=== PATIENT | male | born 1940 | race Caucasian/White ===

== ENCOUNTER → 2017-12-25 | Outpatient (CLI) | payer MEDICARE ==
[2017-12-25 12:05] LABS: HCT 42.6 % (39.0-53.0); HGB 13.8 gm/dL (13.0-17.5); MCH 32.8 pg (25.0-35.0); MCHC 32.4 g/dL (31.0-37.0); MCV 101.1 fL (80.0-100.0); Mean Platelet Volume 6.7; Platelet Count 285 k/uL (150-450); RBC 4.21 m/uL (4.30-5.90); RDW 12.7 % (11.5-15.5); WBC 6.7 k/uL (3.8-10.6)
[2017-12-25 12:49] LABS: Blood Urea Nitrogen 22 mg/dL (9-20); C Reactive Protein 7.1 mg/L (<10.0)
[2017-12-25 14:18] LABS: Erythrocyte Sedimentation Rate 13 mm/hr (0-15)
--- NOTE | 2017-12-25 14:40 | CT ---
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 TECHNIQUE: CT scan of the head is performed with IV contrast.,CT scan of the head is performed withou t and with without and with IV Contrast, patient injected with 100 ml mL of Isovue 300. FINDINGS: Noncontrast images show no acute intracranial hemorrhage or midline shift. The ventricles and sulci are within normal limits in size. Postcontrast images show no suspicious enhancing intrapa renchymal mass. Calvarium is intact. Visualized paranasal sinuses and mastoid air cells are well aera thais. No vasogenic edema is appreciated. No suspicious extra axial fluid collection is seen. The optic nerves appear symmetric without significant undulation or bowing. There is no flattening of the posterior globes. Surgical absence of the lenses is noted bilaterally. There is enlargement of b oth inferior rectus musculature, left greater than right such as on coronal postcontrast image 18 and axial postcontrast image 12 and 13 of the. These also enhance more avidly than the other extraocular musculature. Globes maintain a normal rounded morphology. No preseptal or post septal soft tissue sw elling. Incidental note of posterior nasal septal deviation to the left with a 3 mm leftward nasal septal spu r. No evidence of large vessel vascular occlusion. The posterior communicating arteries are not well seen on CTA, likely diminutive nature. Ophthalmic arteries are also suboptimally visualized but appea r grossly patent. IMPRESSION: 1. No abnormal postcontrast enhancement. No evidence of enhancing intracranial mass. No large vessel vascular occlusion is seen. Ophthalmic arteries are somewhat limited seen but appear grossly patent. No flattening of the globes to suggest CT sequela of intracranial hypertension. 2. Abnormal enhancement and enlargement of the inferior rectus muscle bilaterally. This can be seen i n thyroid ophthalmopathy although no exophthalmos is noted. Correlate with serum laboratory values. A lternatively this could relate to infectious or inflammatory change. 3. No intraconal or extraconal mass. No preseptal or post septal inflammatory change. 4. No abnormal enhancement of the optic nerves or CT evidence of optic nerve gross detachment.
== END | disposition home or self-care (01) ==
LOC: RADCTMAIN 11:29
PROVIDERS: ATTEND Ophthalmology
DX: H57.89 Other specified disorders of eye and adnexa (principal)
CPT/HCPCS: 85652; 82565; 84520; 85027; 86140; 70470; 70482; 36415; Q9967

== ENCOUNTER 2017-12-26 17:09 | Inpatient (IN) | payer MEDICARE ==
[2017-12-26] MEDS ORDERED: methylPREDNISolone SOD SUCCI 125 MG/2 ML VIAL IV STA (17:47)
--- NOTE | 2017-12-26 17:55 | ED ---
Eye Problem HPI - General Chief complaint: Eye Problems Stated complaint: lt eye vision loss Time Seen by Provider: 12/26/17 17:18 Source: patient, family Mode of arrival: ambulatory Limitations: no limitations - History of Present Illness Initial comments: 77-year-old male patient presents to the emergency department today for evaluation of acute vision loss to the left eye. Patient states that for the last 4 days he has been having visual changes that started as a crespo cloud in his upper visual field in the left eye. Patient states that today when he woke he had an acute change in vision to the left eye. States it is completely crespo with bright flashing lights. States he is able to see, but states there is a crespo cloud over everything. Patient states he has increased pressure and achiness surrounding the left eye. States he is having pain to his bilateral temples and has been having jaw pain for the last couple of weeks. He denies any current headache, disturbance of vision in the right eye, numbness, or tingling to his extremities. He denies any dizziness or unilateral weakness. He denies any fever or chills. He does have history of cataract removal bilaterally. Patient denies any recent rash, shortness breath, chest pain, abdominal pain, nausea, vomiting, diarrhea, constipation, back pain, hematuria, dysuria, urinary urgency, urinary frequency, or any other complaints. - Related Data Home Medications Medication Instructions Recorded Confirmed Atorvastatin Calcium 10 mg PO HS 02/19/16 12/26/17 Brimonidine Tartrate [Alphagan P 1 drops LEFT EYE TID 12/26/17 12/26/17 0.2% Ophth Soln] Omeprazole Magnesium [PriLOSEC OTC] 20 mg PO HS 12/26/17 12/26/17 Allergies Allergy/AdvReac Type Severity Reaction Status Date / Time No Known Allergies Allergy Verified 12/26/17 17:36 Review of Systems ROS Statement: Those systems with pertinent positive or pertinent negative responses have been documented in the HPI. ROS Other: All systems not noted in ROS Statement are negative. Past Medical History Past Medical History: GERD/Reflux, Hyperlipidemia Additional Past Medical History / Comment(s): skin cancer History of Any Multi-Drug Resistant Organisms: None Reported Past Surgical History: Cholecystectomy, Tonsillectomy Additional Past Surgical History / Comment(s): Colonoscopy, cataract surgery ( yeison). Past Anesthesia/Blood Transfusion Reactions: No Reported Reaction Past Psychological History: No Psychological Hx Reported Smoking Status: Never smoker Past Alcohol Use History: None Reported Past Drug Use History: None Reported - Past Family History Mother Family Medical History: Cancer Additional Family Medical History / Comment(s): LYMPHOMA General Exam Limitations: no limitations General appearance: alert, in no apparent distress, other (This is a well- developed, well-nourished elderly male patient in no acute distress. Vital signs upon presentation are temperature 98.3F, pulse 62, respirations 18, blood pressure 160/91, pulse ox 98% on room air.) Eye exam: Present: normal appearance, PERRL, EOMI, other (Patient has no temporal tenderness or artery induration. Pressure to bilateral eyes is 8 mmHg. Patient does have some pupillary reaction bilaterally, history of cataract removal. Patient has full range of motion, EOMI intact, no pain with eye movement.). Absent: scleral icterus, conjunctival injection, periorbital swelling ENT exam: Present: normal exam, normal oropharynx, mucous membranes moist Respiratory exam: Present: normal lung sounds bilaterally. Absent: respiratory distress, wheezes, rales, rhonchi, stridor Cardiovascular Exam: Present: regular rate, normal rhythm, normal heart sounds. Absent: systolic murmur, diastolic murmur, rubs, gallop, clicks GI/Abdominal exam: Present: soft, normal bowel sounds. Absent: distended, tenderness, guarding, rebound, rigid Neurological exam: Present: alert, oriented X3, CN II-XII intact, other ( Strength in all 4 extremities is 5/5.) Psychiatric exam: Present: normal affect, normal mood Skin exam: Present: warm, dry, intact, normal color. Absent: rash Course Vital Signs 12/26/17 12/26/17 12/26/17 17:10 19:15 20:20 Temperature 98.3 F 97.1 F L Pulse Rate 62 58 L 64 Pulse Rate [ Pulse Oximetery ] Respiratory 18 16 16 Rate Blood Pressure 160/91 161/79 156/81 Blood Pressure [Right Arm] O2 Sat by Pulse 98 98 95 Oximetry 12/26/17 20:29 Temperature 97.4 F L Pulse Rate Pulse Rate [ 66 Pulse Oximetery ] Respiratory 18 Rate Blood Pressure Blood Pressure 148/85 [Right Arm] O2 Sat by Pulse 95 Oximetry Medical Decision Making - Medical Decision Making 77-year-old male patient presented to the emergency department today for evaluation of left eye pain and visual change. Physical examination was otherwise unremarkable, patient is neurologically intact. Pressure to the left eye was [address] Becker was in to evaluate patient, he reports diagnosis of temporal arteritis though he has signed CRP are both negative. CT brain is negative. We'll start patient on high-dose steroids. We also admit to rule out stroke, we will obtain echocardiogram and bilateral carotid duplex. Did discuss findings and results with the patient. He is in agreement with this plan. - Lab Data Result diagrams: 12/26/17 18:08 10 18:08 Lab Results 12/26/17 12/26/17 Range/Units 18:08 18:08 WBC 6.6 (3.8-10.6) k/uL RBC 4.42 (4.30-5.90) m/uL Hgb 14.5 (13.0-17.5) gm/dL Hct 44.5 (39.0-53.0) % MCV 100.5 H (80.0-100.0) fL MCH 32.9 (25.0-35.0) pg MCHC 32.7 (31.0-37.0) g/dL RDW 12.7 (11.5-15.5) % Plt Count 299 (150-450) k/uL Neutrophils % 64 % Lymphocytes % 24 % Monocytes % 7 % Eosinophils % 3 % Basophils % 0 % Neutrophils # 4.2 (1.3-7.7) k/uL Lymphocytes # 1.5 (1.0-4.8) k/uL Monocytes # 0.5 (0-1.0) k/uL Eosinophils # 0.2 (0-0.7) k/uL Basophils # 0.0 (0-0.2) k/uL ESR 9 (0-15) mm/hr Sodium 141 (137-145) mmol/L Potassium 4.2 (3.5-5.1) mmol/L Chloride 106 (98-107) mmol/L Carbon Dioxide 27 (22-30) mmol/L Anion Gap 8 mmol/L BUN 18 (9-20) mg/dL Creatinine 0.80 (0.66-1.25) mg/dL Est GFR (CKD-EPI)AfAm >90 (>60 ml/min/1.73 sqM) Est GFR (CKD-EPI)NonAf 87 (>60 ml/min/1.73 sqM) Glucose 103 H (74-99) mg/dL Calcium 9.4 (8.4-10.2) mg/dL Total Bilirubin 0.4 (0.2-1.3) mg/dL AST 22 (17-59) U/L ALT 24 (21-72) U/L Alkaline Phosphatase 85 (38-126) U/L C-Reactive Protein 6.1 (<10.0) mg/L Total Protein 6.7 (6.3-8.2) g/dL Albumin 3.8 (3.5-5.0) g/dL - Radiology Data Radiology results: report reviewed, image reviewed Computed tomography scan of the brain was obtained. Report was reviewed in its entirety. Impression by Dr. Teresa shows negative computed tomography scan of the brain. She will atrophy. No change. Disposition Clinical Impression: Visual disturbance, Headache Disposition: [facility] Condition: Serious Decision to Admit Reason: Admit from EC Decision Date: 12/26/17 Decision Time: 19:31 (\)
[2017-12-26 18:22] LABS: Basophils % (A) 0 %; Eosinophils # (A) 0.2 k/uL (0-0.7); Eosinophils % (A) 3 %; HCT 44.5 % (39.0-53.0); HGB 14.5 gm/dL (13.0-17.5); Lymphocytes # (A) 1.5 k/uL (1.0-4.8); Lymphocytes % (A) 24 %; MCH 32.9 pg (25.0-35.0); MCHC 32.7 g/dL (31.0-37.0); MCV 100.5 fL (80.0-100.0); Mean Platelet Volume 6.4; Monocytes # (A) 0.5 k/uL (0-1.0); Monocytes % (A) 7 %; Neutrophils # (A) 4.2 k/uL (1.3-7.7); Neutrophils % (A) 64 %; Platelet Count 299 k/uL (150-450); RBC 4.42 m/uL (4.30-5.90); RDW 12.7 % (11.5-15.5); WBC 6.6 k/uL (3.8-10.6)
[2017-12-26 18:36] LABS: ALT 24 U/L (21-72); AST 22 U/L (17-59); Albumin 3.8 g/dL (3.5-5.0); Alkaline Phosphatase 85 U/L (38-126); Anion Gap 8 mmol/L; Blood Urea Nitrogen 18 mg/dL (9-20); C Reactive Protein 6.1 mg/L (<10.0); Calcium 9.4 mg/dL (8.4-10.2); Carbon Dioxide 27 mmol/L (22-30); Chloride 106 mmol/L (98-107); Glucose 103 mg/dL (74-99); Potassium 4.2 mmol/L (3.5-5.1); Sodium 141 mmol/L (137-145); Total Bilirubin 0.4 mg/dL (0.2-1.3); Total Protein 6.7 g/dL (6.3-8.2)
[2017-12-26] MEDS ORDERED: NALOXONE 0.4 MG/ML 1 ML VIAL IV PRN (19:01)
--- NOTE | 2017-12-26 19:12 | CT ---
EXAMINATION TYPE: CT brain wo con DATE OF EXAM: 12/26/2017 COMPARISON: Yesterday HISTORY: Left eye vision loss. CT DLP: 1078.5 mGycm Automated exposure control for dose reduction was used. FINDINGS: There is some cerebral cortical atrophy. There is no mass effect nor midline shift. There is no sign of intracranial hemorrhage. The calvarium is intact. IMPRESSION: NEGATIVE CT SCAN OF THE BRAIN. CEREBRAL ATROPHY. NO CHANGE.
[2017-12-26 19:43] LABS: Erythrocyte Sedimentation Rate 9 mm/hr (0-15)
--- NOTE | 2017-12-26 20:18 | CONS ---
CONSULTATION Emergency room consultation of the patient. CHIEF COMPLAINT: The patient is complaining of loss of vision in the left eye of 1 day duration, which started like a curtain extending to his whole vision. Was seen by Dr. Tavares who diagnosed anterior ischemic optic neuritis. The patient is complaining of bitemporal pain in both temples with jaw claudication. Denies any history of diabetes or hypertension. Eye examination: Vision right eye 20/40, left eye 20/200. Extraocular motility full. Visual field central scotoma, left eye. Pupils, left mild relative afferent pupillary defect and tension applanation was 19 mmHg for both eyes. Implants in both eyes. Left optic disc shows office shows hemorrhages and ischemia. The pupil was very small, unable to dilate fully. New good indirect to check the peripheral retina in the emergency room. ASSESSMENT: 1. Left ischemic optic neuritis. 2. Possible temporal arteritis. SUGGEST: Neuroophthalmologist/Neurologist to monitor the temporal arteritis needs steroid. Sedimentation rate and C-reactive protein are pending, but still I will treat with steroids at this point because of the bitemporal tenderness and the history of jaw claudication for 2 weeks. Thank you for this consultation. MMODL / IJN: [id number] /
[2017-12-26 21:13] VITALS: BMI 23.5
[2017-12-26] MEDS: ATORVASTATIN 10 MG TAB PO SCH (21:15)
[2017-12-26] MEDS: PANTOPRAZOLE 40 MG TABLET PO SCH (21:15)
[2017-12-26] MEDS: BRIMONIDINE TARTRATE 0.2% DROPS 5 ML BTL LEFT EYE SCH (21:15)
[2017-12-26 21:53] LABS: Glucose,Whole Blood 169 mg/dL (75-99)
[2017-12-26] MEDS: INSULIN ASPART 100 UNIT/ML 1 ML 10 ML VIAL SQ SCH (21:57)
--- NOTE | 2017-12-26 22:21 | US ---
EXAMINATION TYPE: US carotid duplex BILAT DATE OF EXAM: 12/26/2017 COMPARISON: CT Brain CLINICAL HISTORY: left eye vision loss; patient stated has graying of vision; non smoker EXAM MEASUREMENTS: RIGHT: Peak Systolic Velocity (PSV) cm/sec ----- Right CCA: 114.7 ----- Right ICA: 100.2 ----- Right ECA: 117.6 ICA/CCA ratio: 0.9 RIGHT: End Diastole cm/sec ----- Right CCA: 21.7 ----- Right ICA: 15.9 ----- Right ECA: 8.6 LEFT: Peak Systolic Velocity (PSV) cm/sec ----- Left CCA: 81.7 ----- Left ICA: 104.3 ----- Left ECA: 80.8 ICA/CCA ratio: 1.3 LEFT: End Diastole cm/sec ----- Left CCA: 20.4 ----- Left ICA: 30.5 ----- Left ECA: 9.2 VERTEBRALS (direction of flow): Right Vertebral: Antegrade Left Vertebral: Antegrade Rhythm: Normal Mild intimal wall thickening is noted in bilateral carotid systems with some irregular wall changes a t bifurcations, but PSV is wnl bilaterally. IMPRESSION: There is antegrade flow in the vertebral arteries. The images and measurements suggest u p to 25% stenosis in both internal carotid arteries. Criteria for Assigning % of Stenosis / Diameter reduction (Estimation based on the indirect measurements of the internal carotid artery velocities (ICA PSV). 1. Normal (no stenosis)=ICA PSV < 125 cm/s: ratio < 2.0: ICA EDV<40 cm/s. 2. Less than 50% stenosis=ICA PSV < 125 cm/s: ratio < 2.0: ICA EDV<40 cm/s. 3. 50 to 69% stenosis=ICA PSV of 125 to 230 cm/s: ration 2.0 ? 4.0: ICA EDV 40-100 cm/s. 4. Greater than 70% stenosis to near occlusion= ICA PSV > 230 cm/s: ratio > 4.0: ICA EDV > 100 cm/s. 5. Near occlusion= ICA PSV velocities may be low or undetectable: variable ratio and ICA EDV. 6. Total occlusion=unable to detect flow.
[2017-12-27] MEDS: methylPREDNISolone SOD SUCCI 250 MG in SODIUM CHLORIDE 0.9% 100 ML IVPB SCH ×4 (00:35→18:21)
[2017-12-27 05:07] LABS: Hemoglobin A1C 5.4 % (4.0-6.0)
[2017-12-27 05:54] LABS: Glucose,Whole Blood 141 mg/dL (75-99)
[2017-12-27] MEDS: INSULIN ASPART 100 UNIT/ML 1 ML 10 ML VIAL SQ SCH ×4 (06:24→20:06)
--- NOTE | 2017-12-27 08:12 | P.HPIM ---
History of Present Illness H&P Date: 12/27/17 Chief Complaint: Loss of vision This is a 77-year-old male one of Dr. Allen with a previous medical history significant for hyperlipidemia, history of gastroesophageal reflux disease, was in his usual state of health about 3 days ago when he developed to have a horizontal curtain coming in front of his left eye and he had lost about 25% of his vision he ended up going to see Dr. Tavares and had a funduscopic examination that was suggestive of Ischemic optic neuropathy(ION) and the patient was put on eyedrops brimonidine ended up following up with his primary care physician had a Holter monitor and EKG as well as a battery of laboratory evaluation including sed rate that were negative his sed rate in the office was around 5 and repeat a sed rate here in the hospital was about 9, patient yesterday developed to have a 90% loss of the vision of the left eye and patient could not see through his left eye is much he had contacted our answer service and he was directed to go to the ER for evaluation had a CT of the brain that was negative ultrasound the carotids were negative as well he was seen in the ER by Dr. Becker from ophthalmology and dilated funduscopic examination was done in the ER and patient was advised to be admitted to the hospital and have a full stroke workup and neurology consultation he was started on Solu-Medrol 250 mg IV piggyback every 6 hours for the next 3 days, patient will be seen in consultation by neurology will order MRI of the brain with and without gadolinium. Review of Systems Constitutional: Denies chronic headaches, Denies lethargy, Denies weakness, Denies weight gain, Denies weight loss Eyes: left loss of vision Ears, nose, mouth and throat: Denies epistaxis, Denies neck lump, Denies swelling in throat, Denies sore throat Cardiovascular: Denies claudication, Denies dyspnea on exertion, Denies edema, Denies high blood pressure, Denies paroxysmal nocturnal dyspnea, Denies rapid heart beat, Denies shortness of breath Gastrointestinal: Denies abdominal pain, Denies belching, Denies bloating, Denies early satiety, Denies loss of appetite, Denies melena, Denies nausea, Denies vomiting Genitourinary: Denies discharge, Denies dysuria, Denies polyuria Musculoskeletal: Denies myalgias Musculoskeletal: absent: ankle pain, ankle stiffness, ankle swelling, elbow pain , elbow stiffness, elbow swelling, foot pain, foot stiffness, foot swelling, hand pain, hand stiffness, hand swelling, hip pain, hip stiffness, hip swelling , knee pain, knee stiffness, knee swelling, shoulder pain, shoulder stiffness, shoulder swelling, wrist pain, wrist stiffness, wrist swelling Integumentary: Denies pruritus, Denies rash Neurological: Denies numbness, Denies weakness Psychiatric: Denies anxiety, Denies depression Endocrine: Denies fatigue, Denies weight change Past Medical History Past Medical History: GERD/Reflux, Hyperlipidemia Additional Past Medical History / Comment(s): skin cancer History of Any Multi-Drug Resistant Organisms: None Reported Past Surgical History: Cholecystectomy, Tonsillectomy Additional Past Surgical History / Comment(s): Colonoscopy, cataract surgery ( yeison). Past Anesthesia/Blood Transfusion Reactions: No Reported Reaction Past Psychological History: No Psychological Hx Reported Smoking Status: Never smoker Past Alcohol Use History: None Reported Past Drug Use History: None Reported - Past Family History Mother Family Medical History: Cancer (Mother at age of 85 from lymphoma.) Additional Family Medical History / Comment(s): LYMPHOMA Father Family Medical History: Liver Disease (Father at age of 85 from hepatitis C.) Brother(s) Family Medical History: Coronary Artery Disease (CAD) (Patient has 2 brothers one of them with CABG.) Sister(s) Family Medical History: No Reported History (Patient has 2 sisters no major medical problems.) Daughter(s) Family Medical History: No Reported History (Patient has one daughter no major medical problems) Son(s) Family Medical History: No Reported History (Patient has one son no major medical problems) Medications and Allergies Home Medications Medication Instructions Recorded Confirmed Type Atorvastatin Calcium 10 mg PO HS 02/19/16 12/26/17 History Brimonidine Tartrate [Alphagan P 1 drops LEFT EYE TID 12/26/17 12/26/17 History 0.2% Ophth Soln] Omeprazole Magnesium [PriLOSEC OTC] 20 mg PO HS 12/26/17 12/26/17 History predniSONE 10 mg PO DAILY #30 tab 12/29/17 Rx Allergies Allergy/AdvReac Type Severity Reaction Status Date / Time No Known Allergies Allergy Verified 12/26/17 17:36 Physical Exam Vitals: Vital Signs Temp Pulse Pulse Resp BP BP Pulse Ox 12/27/17 04:00 97.0 F L 64 16 115/59 96 12/27/17 00:00 97.3 F L 65 16 110/63 95 12/26/17 21:00 66 18 12/26/17 20:29 97.4 F L 66 18 148/85 95 12/26/17 20:20 97.1 F L 64 16 156/81 95 12/26/17 19:15 58 L 16 161/79 98 12/26/17 17:10 98.3 F 62 18 160/91 98 Intake and Output 12/26/17 12/27/17 12/27/17 22:59 06:59 14:59 Intake Total 400 Balance 400 Intake: Intake, IV Titration 100 Amount methylPREDNISolone SOD 100 SUCCI 250 mg In Sodium Chloride 0.9% 100 ml @ 100 mls/hr IVPB Q6H FARIBA Rx#:[id number] Oral 300 Other: # Voids 1 Weight 66 kg 66 kg - Constitutional General appearance: no acute distress - EENT Eyes: anicteric sclerae, EOMI, PERRLA, no ptosis, no scleral icterus ENT: hearing grossly normal, NA/AT, no thrush Ears: bilateral: normal - Neck Neck: no lymphadenopathy, normal ROM, no rigidity, no stridor, no thyromegaly Carotids: bilateral: upstroke normal Thyroid: bilateral: normal size - Respiratory Respiratory: bilateral: diminished, negative: dullness, rales, rhonchi, wheezing , prolonged expiration, prolonged inspiration - Cardiovascular Rhythm: regular Heart sounds: normal: S1, S2 Abnormal Heart Sounds: no systolic murmur, no diastolic murmur, no S3 Gallop, no S4 Gallop - Gastrointestinal General gastrointestinal: normal bowel sounds, soft, no splenomegaly, no tenderness, no umbilical hernia, no ventral hernia - Integumentary Integumentary: normal - Neurologic Neurologic: CNII-XII intact - Musculoskeletal Musculoskeletal: gait normal, strength equal bilaterally - Psychiatric Psychiatric: A&O x's 3, appropriate affect, intact judgment & insight Results CBC & Chem 7: 12/29/17 06:17 12/29/17 06:17 Labs: Abnormal Lab Results - Last 24 Hours (Table) 12/26/17 12/26/17 12/26/17 Range/Units 18:08 18:08 21:49 MCV 100.5 H (80.0-100.0) fL Glucose 103 H (74-99) mg/dL POC Glucose (mg/dL) 169 H (75-99) mg/dL 12/27/17 Range/Units 05:52 MCV (80.0-100.0) fL Glucose (74-99) mg/dL POC Glucose (mg/dL) 141 H (75-99) mg/dL Thrombosis Risk Factor Assmnt - DVT/VTE Prophylaxis DVT/VTE Prophylaxis: Pharmacologic Prophylaxis ordered, Mechanical Prophylaxis ordered - Choose All That Apply Any of the Below Risk Factors Present?: Yes Other Risk Factors: Yes Each Risk Factor Represents 3 Points: Age 75 years or older Other congenital or acquired thrombophilia - If yes, enter type in comment: No Thrombosis Risk Factor Assessment Total Risk Factor Score: 3 Thrombosis Risk Factor Assessment Level: Moderate Risk Assessment and Plan Assessment: Assessment and plan: 1. Subacute left eye visual loss thought to be due to Ischemic Optic neuropathy (ION). Continue Solu-Medrol 250 mg IV piggyback every 6 hours for the next 3 days, we will obtain MRI of the brain with and without gadolinium and will obtain neurology consultation, patient already was seen by Opthalmology here in the ER and also by Dr. Tavares, we will monitor the patient very closely, we will follow up with Neuroopthalmology as an outpatient. 2. Hyperlipidemia. Continue patient on Lipitor 20 mg orally once every day. 3. GERD. Continue patient on omeprazole 20 mg orally once every day 4. DVT prophylaxis. Lovenox 40 mg subcutaneously every 24 hours. 5. GI prophylaxis. Currently on PPI. 6. Full code. 7. Admit to inpatient. Estimated length of stay 2 midnights.
[2017-12-27] MEDS: BRIMONIDINE TARTRATE 0.2% DROPS 5 ML BTL LEFT EYE SCH ×3 (08:48→19:59)
--- NOTE | 2017-12-27 09:49 | ECHOF ---
Referral Reason:acute vision changes MEASUREMENTS -------- HEIGHT: 167.6 cm WEIGHT: 65.8 kg BP: 115/59 RVIDd: 3.1 cm (< 3.3) IVSd: 1.0 cm (0.6 - 1.1) LVIDd: 3.6 cm (3.9 - 5.3) LVPWd: 1.0 cm (0.6 - 1.1) IVSs: 1.1 cm LVIDs: 2.0 cm LVPWs: 1.1 cm LAESV Index (A-L): 22.89 ml/m Ao Diam: 3.0 cm (2.0 - 3.7) AV Cusp: 1.3 cm (1.5 - 2.6) LA Diam: 3.1 cm (2.7 - 3.8) MV E Osiel: 0.71 m/s MV DecT: 227 ms MV A Osiel: 0.72 m/s MV E/A Ratio: 0.99 RAP: 5.00 mmHg RVSP: 34.72 mmHg FINDINGS -------- Sinus rhythm. This was a technically adequate study. The left ventricular size is normal. Left ventricular wall thickness is normal. Overall left vent ricular systolic function is normal with, an EF between 55 - 60 %. The right ventricle is normal in size and function. Normal LA size by volume 22+/-6 ml/m2. RA appears enlarged. Hyperdynamic interatrial septum. There is mild aortic valve sclerosis. There is no evidence of aortic regurgitation. There is no e vidence of aortic stenosis. Mild mitral annular calcification present. There is trace to mild mitral regurgitation. No regurgitation noted There is borderline pulmonary hypertension. The right ventricular systolic pressure, as measured by Doppler, is 34.72mmHg. The pulmonic valve was not well visualized. The aortic root size is normal. Normal inferior vena cava with normal inspiratory collapse consistent with estimated right atrial pre ssure of 5 mmHg. There is no pericardial effusion. CONCLUSIONS -------- 1. Sinus rhythm. 2. This was a technically adequate study. 3. The left ventricular size is normal. 4. Left ventricular wall thickness is normal. 5. Overall left ventricular systolic function is normal with, an EF between 55 - 60 %. 6. Normal LA size by volume 22+/-6 ml/m2. 7. RA appears enlarged. 8. Hyperdynamic interatrial septum. 9. There is mild aortic valve sclerosis. 10. Mild mitral annular calcification present. 11. There is trace to mild mitral regurgitation. 12. No regurgitation noted 13. There is borderline pulmonary hypertension. 14. The right ventricular systolic pressure, as measured by Doppler, is 34.72mmHg. 15. The pulmonic valve was not well visualized. 16. The aortic root size is normal. 17. There is no pericardial effusion. PLODDING OPERATOR: Peewee Bernard RDCS
--- NOTE | 2017-12-27 12:30 | MR ---
EXAMINATION TYPE: MR MRA/MRV head wo con DATE OF EXAM: 12/27/2017 COMPARISON: CT scan of the brain dated 12/26/2017 HISTORY: Loss of vision L eye TECHNIQUE: Time of flight images focusing on the [place] were performed without contrast.. 2-D and 3-D postprocessing imaging is performed. FINDINGS: The left vertebral artery is dominant. Neither posterior communicating artery is visualized with certainty. Both anterior cerebral arteries are patent. Both ophthalmic arteries are visualized. There is normal arborization of the middle cerebral artery. There is no sizable aneurysm. MRV of the brain demonstrates a normal sagittal sinus, straight sinus and sigmoid sinuses bilaterally . Superficial veins are patent. No thrombus is identified. IMPRESSION: NORMAL MRA AND MRV OF THE BRAIN.
[2017-12-27 12:49] LABS: Glucose,Whole Blood 133 mg/dL (75-99)
--- NOTE | 2017-12-27 12:54 | MR ---
EXAMINATION TYPE: MR brain wo/w con DATE OF EXAM: 12/27/2017 12:34 PM COMPARISON: CT scan of the brain dated 12/26/2017. HISTORY: Loss of vision TECHNIQUE: Multiplanar, multiecho imaging of the brain was obtained with and without intravenous adm inistration of 6.5 mL intravenous Gadavist. 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 Mi dline structures are otherwise unremarkable. Echoplanar diffusion imaging is normal. There are normal vascular flow voids. The orbits are unremarkable. There is no evidence of a CP angle mass lesion. There is no acute focal lesion, mass effect or midline shift identified. I do not see evidence of int racranial blood. Following intravenous administration of gadolinium, I do not see evidence of abnormal enhancement. IMPRESSION: 1. NO ACUTE INTRACRANIAL ABNORMALITY. 2. CHIARI I MALFORMATION.
[2017-12-27] MEDS: ENOXAPARIN 40 MG/0.4 ML SYRINGE SQ SCH (16:58)
[2017-12-27 17:09] LABS: Glucose,Whole Blood 201 mg/dL (75-99)
[2017-12-27] MEDS: PANTOPRAZOLE 40 MG TABLET PO SCH (19:59)
[2017-12-27] MEDS: ATORVASTATIN 10 MG TAB PO SCH (19:59)
[2017-12-27 20:12] LABS: Glucose,Whole Blood 170 mg/dL (75-99)
[2017-12-28] MEDS: methylPREDNISolone SOD SUCCI 250 MG in SODIUM CHLORIDE 0.9% 100 ML IVPB SCH ×5 (00:39→23:55)
[2017-12-28 04:54] LABS: Basophils % (A) 0 %; Eosinophils % (A) 0 %; HCT 40.6 % (39.0-53.0); HGB 13.1 gm/dL (13.0-17.5); Lymphocytes # (A) 0.6 k/uL (1.0-4.8); Lymphocytes % (A) 4 %; MCH 32.1 pg (25.0-35.0); MCHC 32.2 g/dL (31.0-37.0); MCV 99.7 fL (80.0-100.0); Mean Platelet Volume 6.5; Monocytes # (A) 0.4 k/uL (0-1.0); Monocytes % (A) 2 %; Neutrophils # (A) 14.4 k/uL (1.3-7.7); Neutrophils % (A) 94 %; Platelet Count 292 k/uL (150-450); RBC 4.08 m/uL (4.30-5.90); WBC 15.4 k/uL (3.8-10.6)
[2017-12-28 05:12] LABS: ALT 23 U/L (21-72); AST 13 U/L (17-59); Albumin 3.2 g/dL (3.5-5.0); Alkaline Phosphatase 69 U/L (38-126); Anion Gap 4 mmol/L; Blood Urea Nitrogen 18 mg/dL (9-20); Calcium 9.1 mg/dL (8.4-10.2); Carbon Dioxide 24 mmol/L (22-30); Chloride 110 mmol/L (98-107); Glucose 154 mg/dL (74-99); Potassium 4.3 mmol/L (3.5-5.1); Sodium 138 mmol/L (137-145); Total Bilirubin 0.3 mg/dL (0.2-1.3); Total Protein 5.9 g/dL (6.3-8.2)
[2017-12-28 05:12] LABS: Glucose,Whole Blood 148 mg/dL (75-99)
[2017-12-28] MEDS: INSULIN ASPART 100 UNIT/ML 1 ML 10 ML VIAL SQ SCH ×4 (05:54→20:43)
[2017-12-28] MEDS: ENOXAPARIN 40 MG/0.4 ML SYRINGE SQ SCH (07:57)
[2017-12-28] MEDS: BRIMONIDINE TARTRATE 0.2% DROPS 5 ML BTL LEFT EYE SCH ×3 (07:57→20:14)
--- NOTE | 2017-12-28 09:10 | P.CNNES ---
History of Present Illness Consult date: 12/27/17 Reason for Consult: Patient admitted with optic neuritis of the left eye. History of Present Illness: This neurology consultation was performed on 12/27/2017 on [facility] care floor for patient Aj Alexis in (Room 652-2). This patient is a 77-year-old right-handed white male who was in his usual state of health until recently. About 3 days prior to his admission to the hospital. Was noticing difficulty with vision in his left eye. Initially described it as a curtain coming down over his left eye visual field. This was quite concerning for the patient as he has not had vision changes previously. He was seen by his cnc mechanic Dr. Tavares who performed a funduscopic examination in the office on 12/25/2017. He made a diagnosis suggesting acute ischemic optic neuritis involving his left eye. He was prescribed some eyedrops and advised to follow-up with his primary care physician. Dr. Tavares also requested a computed tomography scan of the brain to be done. CAT scan of the brain was completed on 12/25/2017 which revealed no abnormal postcontrast enhancement. No evidence of enhancing mass lesion. No large vessel occlusion was noted. There was some abnormal enhancement involving the inferior rectus muscle bilaterally. This could be seen in thyroid ophthalmopathy. No abnormal enhancement of the optic nerves was detected. The patient was then referred on to his primary care physician Dr. Allen for further evaluation. A Holter monitor was recommended as well as a EKG. He underwent a laboratory tests to check his sedimentation rate which was 9.0. C-reactive protein was 6.1. Both of these are well within normal limits. Patient was recommended admission to the hospital for acute left eye optic neuritis and was recommended immediate treatment with IV Solu-Medrol 250 mg IVP E back every 6 hours for 3 days. The patient was admitted to [facility] for this treatment plan. While in the emergency room he was seen by Dr. Becker who did recommend starting him on IV Solu-Medrol. MRI/MRA MRV of the brain was ordered and he was admitted to Hospital for further treatment. The patient denies any previous history of TIA or stroke. He states his serum cholesterol has been under good control. He does have a known history of hyperlipidemia and has been taking Lipitor 20 mg daily. We have recommended a complete stroke evaluation for this patient. As noted his sedimentation rate and C-reactive protein were well within normal limits and did not indicate signs of acute inflammatory response. These laboratory tests results are not typically seen with temporal arteritis. The patient was complaining of bilateral temporal headaches which on further questioning actually was more of a pressure sensation especially on his left retro-orbital area. This is most likely related to his optic neuritis. We will continue close monitoring. The patient states that his vision has shown slight improvement since admission to the hospital. As noted he has been recommended 3 days of IV Solu-Medrol therapy which we agree. He underwent MRI of the brain today on 12/27/2017 which revealed no acute intra-cranial abnormality. There was finding suggesting a Chiari I malformation. This finding is more likely incidental finding for the patient as he does not have classical findings of Chiari I malformation. Typical symptoms would include chronic daily suboccipital headache, neck pain, vertigo, tinnitus, and aural fullness. Patient states he is not experiencing any of these symptoms. We have recommended that he follow-up wit the neurosurgery clinic as an outpatient for further evaluation. His MRA and MRV of the brain were normal. We reviewed all of these results today with the patient in detail. His echocardiogram revealed his ejection fraction to be 55 60 percent. His carotid Doppler study was also completed and revealed no evidence of carotid artery stenosis. Measurements indicate 25% stenosis bilaterally. We reviewed all of his test results today with the patient in detail. 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 He will require full 3 days of IV Solu- Medrol therapy. He should follow-up with Dr. Tavares soon after discharge from hospital. The patient is now been admitted and neurology has been consulted for further evaluation and recommendations. We will continue close neurological follow-up for this patient during this admission. Review of Systems Constitutional: Denies chills, Denies fever Eyes: denies blurred vision, denies pain Ears, nose, mouth and throat: Denies headache, Denies sore throat Cardiovascular: Denies chest pain, Denies shortness of breath Respiratory: Denies cough Gastrointestinal: Denies abdominal pain, Denies diarrhea, Denies nausea, Denies vomiting Musculoskeletal: Denies myalgias Integumentary: Denies pruritus, Denies rash Neurological: Reports loss of vision, Denies numbness, Denies weakness Psychiatric: Denies anxiety, Denies depression Endocrine: Denies fatigue, Denies weight change Past Medical History Past Medical History: GERD/Reflux, Hyperlipidemia Additional Past Medical History / Comment(s): skin cancer History of Any Multi-Drug Resistant Organisms: None Reported Past Surgical History: Cholecystectomy, Tonsillectomy Additional Past Surgical History / Comment(s): Colonoscopy, cataract surgery ( [place]). Past Anesthesia/Blood Transfusion Reactions: No Reported Reaction Past Psychological History: No Psychological Hx Reported Smoking Status: Never smoker Past Alcohol Use History: None Reported Past Drug Use History: None Reported - Past Family History Father Family Medical History: Liver Disease (Father at age of 85 from hepatitis C.) Brother(s) Family Medical History: Coronary Artery Disease (CAD) (Patient has 2 brothers one of them with CABG.) Sister(s) Family Medical History: No Reported History (Patient has 2 sisters no major medical problems.) Daughter(s) Family Medical History: No Reported History (Patient has one daughter no major medical problems) Son(s) Family Medical History: No Reported History (Patient has one son no major medical problems) Mother Family Medical History: Cancer (Mother at age of 85 from lymphoma.) Additional Family Medical History / Comment(s): LYMPHOMA Medications and Allergies Home Medications Medication Instructions Recorded Confirmed Type Atorvastatin Calcium 10 mg PO HS 02/19/16 12/26/17 History Brimonidine Tartrate [Alphagan P 1 drops LEFT EYE TID 12/26/17 12/26/17 History 0.2% Ophth Soln] Omeprazole Magnesium [PriLOSEC OTC] 20 mg PO HS 12/26/17 12/26/17 History Allergies Allergy/AdvReac Type Severity Reaction Status Date / Time No Known Allergies Allergy Verified 12/26/17 17:36 Physical Examination - Vital Signs Vital Signs: Vital Signs Temp Pulse Resp BP Pulse Ox 12/28/17 08:33 98.1 F 75 16 114/62 95 12/28/17 03:38 97.9 F 65 16 107/57 100 12/28/17 00:00 98.0 F 72 18 114/69 96 12/27/17 20:00 98.1 F 73 18 114/62 96 12/27/17 16:00 97.7 F 78 16 116/64 95 12/27/17 12:39 97.5 F L 78 16 137/69 95 12/27/17 08:52 97.6 F 75 16 110/55 97 Intake and Output 12/27/17 12/28/17 12/28/17 22:59 06:59 14:59 Intake Total 400 100 Balance 400 100 Intake: Intake, IV Titration 100 100 Amount methylPREDNISolone SOD 100 100 SUCCI 250 mg In Sodium Chloride 0.9% 100 ml @ 100 mls/hr IVPB Q6H [facility] Rx#:[id number] Oral 300 Other: # Voids 1 Weight 65.9 kg - Constitutional General appearance: average body habitus, cooperative - EENT EENT: PERRL, mucous membranes moist - Respiratory Respiratory: lungs clear, normal breath sounds - Cardiovascular Cardiovascular: regular rate, normal S1, normal S2 Extremities: no peripheral edema bilaterally - Gastrointestinal Gastrointestinal: normoactive bowel sounds - Integumentary Integumentary: normal - Neurologic Cranial nerve examination: PERRL, EOMI, VFF, V1/V2/V3 grossly intact, face symmetric, tongue midline, intact gag reflex, intact corneal reflex, normal palatal elevation Speech examination: intact Sensorimotor examination: intact Detailed motor examination: grossly full strength in all extremities Motor examination - right side: 4/5: biceps, triceps, wrist flexion, wrist extension, nurse orthopaedic, hip flexors, knee extensors, dorsiflexion, toe extension (EHL) , plantarflexion Motor examination - left side: 4/5: biceps, triceps, wrist flexion, wrist extension, nurse orthopaedic, hip flexors, knee extensors, dorsiflexion, toe extension (EHL) , plantarflexion Detailed sensory examination: intact Reflex and gait examination: intact Reflexes: 1+: ankle, bicep, knee, tricep - Musculoskeletal Musculoskeletal: no pain - Psychiatric Psychiatric: mood/affect appropriate, cooperative Results - Laboratory Findings CBC and BMP: 12/28/17 04:39 12/28/17 04:39 Abnormal Lab Findings: Abnormal Labs 12/26/17 12/26/17 12/26/17 18:08 18:08 21:49 WBC RBC MCV 100.5 H Neutrophils # Lymphocytes # Chloride Glucose 103 H POC Glucose (mg/dL) 169 H AST Total Protein Albumin 12/27/17 12/27/17 12/27/17 05:52 12:46 16:46 WBC RBC MCV Neutrophils # Lymphocytes # Chloride Glucose POC Glucose (mg/dL) 141 H 133 H 201 H AST Total Protein Albumin 12/27/17 12/28/17 12/28/17 20:01 04:39 04:39 WBC 15.4 H RBC 4.08 L MCV Neutrophils # 14.4 H Lymphocytes # 0.6 L Chloride 110 H Glucose 154 H POC Glucose (mg/dL) 170 H AST 13 L Total Protein 5.9 L Albumin 3.2 L 12/28/17 05:09 WBC RBC MCV Neutrophils # Lymphocytes # Chloride Glucose POC Glucose (mg/dL) 148 H AST Total Protein Albumin Assessment and Plan (1) 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 Current Visit: Yes Status: Acute Code(s): H47.012 - ISCHEMIC OPTIC NEUROPATHY, LEFT EYE SNOMED Code(s): 34951369 (2) Headache, temporal Current Visit: Yes Status: Acute Code(s): R51 - HEADACHE SNOMED Code(s): 84551823 (3) Hyperlipidemia Current Visit: Yes Status: Acute Code(s): E78.5 - HYPERLIPIDEMIA, UNSPECIFIED SNOMED Code(s): 82841009 (4) Visual disturbance Current Visit: Yes Status: Acute Code(s): H53.9 - UNSPECIFIED VISUAL DISTURBANCE SNOMED Code(s): 36524569 Plan: This patient is a 77-year-old right-handed white male who was admitted to [facility] for further evaluation and treatment of acute left thigh anterior ischemic optic neuritis. Patient was followed by his cnc mechanic Dr. Tavares who has seen him on 12/25/2017 as he was having vision loss in his left eye. He was advised to follow-up with his primary care physician and subsequently was admitted to Hospital for further treatment. He is now been admitted to hospital and is being treated with IV Solu-Medrol 250 mg IV piggyback every 6 hours for 3 days. His diagnosis is one of acute optic neuritis involving his left eye. He underwent a MRI/MRA and MRV of the brain the results of which are noted above. The patient will require full 3 day course of IV Solu-Medrol therapy for treatment of the optic neuritis. His MRI of the brain failed to reveal any acute changes. Incidental finding of a Chiari I malformation was noted and we would recommend he follow-up in the outpatient neurosurgery clinic for further evaluation. The patient's sedimentation rate and C-reactive proteins are negative and are not indicating evidence for temporal arteritis. On further questioning the patient's fullness and discomfort are mostly retro-orbital on his left side. This is likely secondary to his acute optic neuritis findings. His overall prognosis at this time remains guarded. We will continue to follow him closely during this admission. We will continue to follow his progress closely and we will give further recommendations pending his clinical course. Time with Patient: Greater than 30
[2017-12-28 12:35] LABS: Glucose,Whole Blood 171 mg/dL (75-99)
--- NOTE | 2017-12-28 14:22 | P.PN ---
Subjective Progress Note Date: 12/28/17 This is a 77-year-old male one of Dr. Allen with a previous medical history significant for hyperlipidemia, history of gastroesophageal reflux disease, was in his usual state of health about 3 days ago when he developed to have a horizontal curtain coming in front of his left eye and he had lost about 25% of his vision he ended up going to see Dr. Tavares and had a funduscopic examination that was suggestive of (ION) and the patient was put on eyedrops brimonidine ended up following up with his primary care physician had a Holter monitor and EKG as well as a battery of laboratory evaluation including sed rate that were negative his sed rate in the office was around 5 and repeat a sed rate here in the hospital was about 9, patient yesterday developed to have a 90% loss of the vision of the left eye and patient could not see through his left eye is much he had contacted our answer service and he was directed to go to the ER for evaluation had a CT of the brain that was negative ultrasound the carotids were negative as well he was seen in the ER by Dr. Becker from ophthalmology and dilated funduscopic examination was done in the ER and patient was advised to be admitted to the hospital and have a full stroke workup and neurology consultation he was started on Solu-Medrol 250 mg IV piggyback every 6 hours for the next 3 days, patient will be seen in consultation by neurology will order MRI of the brain with and without gadolinium. 12/28: MRI of the brain with and without gadolinium was done did not show any evidence of acute abnormalities was an incidental finding of Chiari I malformation, patient was seen in consultation by neurology, he was already seen in consultation by ophthalmology, we will continue with Solu-Medrol for the next 3 days. Patient stated that he is feeling worsening of the vision of the left eye, he would be maintained on IV Solu-medrol for the next 24 hours, and he would need to follow-up with Neuro-ophthalmology as an outpatient. Objective - Vital Signs Vital signs: Vital Signs Temp 98.1 F 12/28/17 08:33 Pulse 75 12/28/17 08:33 Resp 16 12/28/17 08:33 BP 114/62 12/28/17 08:33 Pulse Ox 95 12/28/17 08:33 Intake & Output 1012/28/17 12/28/17 18:59 06:59 18:59 Intake Total 420 500 Balance 420 500 Weight 65.9 kg Intake: Intake, IV Titration 200 Amount methylPREDNISolone SOD 200 SUCCI 250 mg In Sodium Chloride 0.9% 100 ml @ 100 mls/hr IVPB Q6H [facility] Rx#:[id number] Oral 420 300 Other: # Voids 1 - Exam - Constitutional General appearance: no acute distress - EENT Eyes: anicteric sclerae, EOMI, PERRLA, no ptosis, no scleral icterus ENT: hearing grossly normal, NA/AT, no thrush Ears: bilateral: normal - Neck Neck: no lymphadenopathy, normal ROM, no rigidity, no stridor, no thyromegaly Carotids: bilateral: upstroke normal Thyroid: bilateral: normal size - Respiratory Respiratory: bilateral: diminished, negative: dullness, rales, rhonchi, wheezing , prolonged expiration, prolonged inspiration - Cardiovascular Rhythm: regular Heart sounds: normal: S1, S2 Abnormal Heart Sounds: no systolic murmur, no diastolic murmur, no S3 Gallop, no S4 Gallop - Gastrointestinal General gastrointestinal: normal bowel sounds, soft, no splenomegaly, no tenderness, no umbilical hernia, no ventral hernia - Integumentary Integumentary: normal - Neurologic Neurologic: CNII-XII intact - Musculoskeletal Musculoskeletal: gait normal, strength equal bilaterally - Psychiatric Psychiatric: A&O x's 3, appropriate affect, intact judgment & insight - Labs CBC & Chem 7: 12/29/17 06:17 12/29/17 06:17 Labs: Abnormal Lab Results - Last 24 Hours (Table) 12/27/17 12/27/17 12/27/17 Range/Units 12:46 16:46 20:01 WBC (3.8-10.6) k/uL RBC (4.30-5.90) m/uL Neutrophils # (1.3-7.7) k/uL Lymphocytes # (1.0-4.8) k/uL Chloride (98-107) mmol/L Glucose (74-99) mg/dL POC Glucose (mg/dL) 133 H 201 H 170 H (75-99) mg/dL AST (17-59) U/L Total Protein (6.3-8.2) g/dL Albumin (3.5-5.0) g/dL 12/28/17 12/28/17 12/28/17 Range/Units 04:39 04:39 05:09 WBC 15.4 H (3.8-10.6) k/uL RBC 4.08 L (4.30-5.90) m/uL Neutrophils # 14.4 H (1.3-7.7) k/uL Lymphocytes # 0.6 L (1.0-4.8) k/uL Chloride 110 H (98-107) mmol/L Glucose 154 H (74-99) mg/dL POC Glucose (mg/dL) 148 H (75-99) mg/dL AST 13 L (17-59) U/L Total Protein 5.9 L (6.3-8.2) g/dL Albumin 3.2 L (3.5-5.0) g/dL Assessment and Plan Assessment: Assessment and plan: 1. Subacute left eye visual loss thought to be due to (ION). Continue Solu- Medrol 250 mg IV piggyback every 6 hours for the next 3 days, MRI of the brain with gadolinium failed to show any acute abnormalities except for the Chiari I malformation. 2. Hyperlipidemia. Continue patient on Lipitor 20 mg orally once every day. 3. GERD. Continue patient on omeprazole 20 mg orally once every day 4. DVT prophylaxis. Lovenox 40 mg subcutaneously every 24 hours. 5. GI prophylaxis. Currently on PPI. 6. Home in 24 hours.
[2017-12-28 17:24] LABS: Glucose,Whole Blood 137 mg/dL (75-99)
[2017-12-28] MEDS: ATORVASTATIN 10 MG TAB PO SCH (20:14)
[2017-12-28] MEDS: PANTOPRAZOLE 40 MG TABLET PO SCH (20:14)
[2017-12-28 20:30] LABS: Glucose,Whole Blood 153 mg/dL (75-99)
[2017-12-29 06:03] LABS: Glucose,Whole Blood 140 mg/dL (75-99)
[2017-12-29] MEDS: INSULIN ASPART 100 UNIT/ML 1 ML 10 ML VIAL SQ SCH ×2 (06:20→12:18)
[2017-12-29] MEDS: methylPREDNISolone SOD SUCCI 250 MG in SODIUM CHLORIDE 0.9% 100 ML IVPB SCH ×2 (06:20→12:18)
[2017-12-29 06:44] LABS: Basophils % (A) 0 %; Eosinophils % (A) 0 %; HCT 39.3 % (39.0-53.0); HGB 13.1 gm/dL (13.0-17.5); Lymphocytes # (A) 0.5 k/uL (1.0-4.8); Lymphocytes % (A) 4 %; MCHC 33.4 g/dL (31.0-37.0); MCV 98.9 fL (80.0-100.0); Monocytes # (A) 0.4 k/uL (0-1.0); Monocytes % (A) 3 %; Neutrophils # (A) 13.9 k/uL (1.3-7.7); Neutrophils % (A) 93 %; Platelet Count 275 k/uL (150-450); RBC 3.98 m/uL (4.30-5.90); RDW 13.1 % (11.5-15.5); WBC 14.8 k/uL (3.8-10.6)
[2017-12-29 06:57] LABS: ALT 14 U/L (21-72); AST 14 U/L (17-59); Albumin 2.9 g/dL (3.5-5.0); Alkaline Phosphatase 58 U/L (38-126); Anion Gap 5 mmol/L; Blood Urea Nitrogen 23 mg/dL (9-20); Calcium 8.8 mg/dL (8.4-10.2); Carbon Dioxide 25 mmol/L (22-30); Chloride 110 mmol/L (98-107); Glucose 133 mg/dL (74-99); Potassium 4.4 mmol/L (3.5-5.1); Sodium 140 mmol/L (137-145); Total Bilirubin 0.3 mg/dL (0.2-1.3); Total Protein 5.4 g/dL (6.3-8.2)
[2017-12-29] MEDS: ENOXAPARIN 40 MG/0.4 ML SYRINGE SQ SCH (08:16)
[2017-12-29] MEDS: BRIMONIDINE TARTRATE 0.2% DROPS 5 ML BTL LEFT EYE SCH (08:16)
[2017-12-29 08:59] VITALS: RESP 18
[2017-12-29 11:28] LABS: Glucose,Whole Blood 149 mg/dL (75-99)
[2017-12-29 12:54] VITALS: BP 116/70; PULSE 64; TEMP 97.5
--- NOTE | 2017-12-29 13:50 | P.DS ---
Providers Date of admission: 12/26/17 19:32 Attending physician: Preet Allen Consults: 12/26/17 18:03 Consult Physician Stat Consulting Provider: Rina Becker Consult Reason/Comments: Vision loss Do you want consulting provider notified?: Already Contacted 12/26/17 19:05 Consult Physician Routine Consulting Provider: Tori Ellison Consult Reason/Comments: Acute Visual Change; Concern for stroke; Temporal arteritis Do you want consulting provider notified?: Yes Primary care physician: Preet Allen [facility] Hospital Course: This is a 77-year-old male one of Dr. Allen with a previous medical history significant for hyperlipidemia, history of gastroesophageal reflux disease, was in his usual state of health about 3 days ago when he developed to have a horizontal curtain coming in front of his left eye and he had lost about 25% of his vision he ended up going to see Dr. Tavares and had a funduscopic examination that was suggestive of optic neuritis and the patient was put on eyedrops brimonidine ended up following up with his primary care physician had a Holter monitor and EKG as well as a battery of laboratory evaluation including sed rate that were negative his sed rate in the office was around 5 and repeat a sed rate here in the hospital was about 9, patient yesterday developed to have a 90% loss of the vision of the left eye and patient could not see through his left eye is much he had contacted our answer service and he was directed to go to the ER for evaluation had a CT of the brain that was negative ultrasound the carotids were negative as well he was seen in the ER by Dr. Becker from ophthalmology and dilated funduscopic examination was done in the ER and patient was advised to be admitted to the hospital and have a full stroke workup and neurology consultation he was started on Solu-Medrol 250 mg IV piggyback every 6 hours for the next 3 days, patient will be seen in consultation by neurology will order MRI of the brain with and without gadolinium. 12/28: MRI of the brain with and without gadolinium was done did not show any evidence of acute abnormalities was an incidental finding of Chiari I malformation, patient was seen in consultation by neurology, he was already seen in consultation by ophthalmology, we will continue with Solu-Medrol for the next 3 days. Patient stated that he is feeling worsening of the vision of the left eye, he would be maintained on IV centimeter for the next 24 hours, and he would need to follow-up with ophthalmology as an outpatient. 12/29: Patient evaluated today, at bedside. He has complaints of now only being able to see a slight shadow out of the left eye, he does report pain has decreased with the steroids. Dr. Gonzales spoke with Chaitanya, who recommends the patient be discharged and a follow up with neuro opthalmology. He is scheduled to see Dr. Karlos Velez tomorrow at 1:30. He will finish Solumedrol infusion today and start oral prednisone. Discharge diagnoses 1. Subacute left eye visual loss thought to be due to ischemic optic neuropathy 2. Hyperlipidemia. 3. GERD. The above impression and plan of care have been discussed and directed by signing physician. Rupali Retana nurse practitioner acting as scribe for signing physician. Patient Condition at Discharge: Good Plan - Discharge Summary Discharge Rx Participant: No New Discharge Prescriptions: New predniSONE 10 mg PO DAILY #30 tab Continue Atorvastatin Calcium 10 mg PO HS Brimonidine Tartrate [Alphagan P 0.2% Ophth Soln] 1 drops LEFT EYE TID Omeprazole Magnesium [PriLOSEC OTC] 20 mg PO HS Discharge Medication List Atorvastatin Calcium 10 mg PO HS 02/19/16 [History] Brimonidine Tartrate [Alphagan P 0.2% Ophth Soln] 1 drops LEFT EYE TID 12/26/17 [History] Omeprazole Magnesium [PriLOSEC OTC] 20 mg PO HS 12/26/17 [History] predniSONE 10 mg PO DAILY #30 tab 12/29/17 [Rx] Follow up Appointment(s)/Referral(s): Karlos Velez MD [REFERRING] - 12/30/17 1:30 pm (Friday (tomorrow)) Preet Allen MD [Primary Care Provider] - 01/02/18 11:00 am (Friday)
== END 2017-12-29 14:17 | disposition home or self-care (01) | DRG 123 ==
LOC: EC 17:09 → 6SEL 19:32 → 3SCARD 12-28 08:43 → 6SEL 12-28 08:43 → UNDODISIN 12-29 14:17
PROVIDERS: ADMIT Internal Medicine Geriatric Medicine; ATTEND Internal Medicine Geriatric Medicine
DX: H47.012 Ischemic optic neuropathy, left eye (principal); G93.5 Compression of brain; H46.9 Unspecified optic neuritis; E78.5 Hyperlipidemia, unspecified; H53.412 Scotoma involving central area, left eye; K21.9 Gastro-esophageal reflux disease without esophagitis; R51 Headache; Z79.899 Other long term (current) drug therapy; Z85.828 Personal history of other malignant neoplasm of skin; Z90.49 Acquired absence of other specified parts of digestive tract; Z98.49 Cataract extraction status, unspecified eye; Z96.1 Presence of intraocular lens; Z82.49 Family history of ischemic heart disease and other diseases of the circulatory system; Z80.7 Family history of other malignant neoplasms of lymphoid, hematopoietic and related tissues
CPT/HCPCS: 36415; 70450; 70544; 70553; 80053; 83036; 85025; 85652; 86140; 93306; 93880; 96365; 96376; 99285

== ENCOUNTER → 2018-02-19 | Outpatient (CLI) | payer MEDICARE ==
[2018-02-19 11:08] LABS: HCT 45.2 % (39.0-53.0); HGB 14.8 gm/dL (13.0-17.5); MCH 32.9 pg (25.0-35.0); MCHC 32.8 g/dL (31.0-37.0); MCV 100.3 fL (80.0-100.0); Mean Platelet Volume 6.4; Platelet Count 248 k/uL (150-450); RBC 4.51 m/uL (4.30-5.90); RDW 13.3 % (11.5-15.5); WBC 12.3 k/uL (3.8-10.6)
[2018-02-19 12:56] LABS: Erythrocyte Sedimentation Rate 8 mm/hr (0-15)
== END | disposition home or self-care (01) ==
LOC: LABWHC1 10:02
PROVIDERS: ATTEND Ophthalmology
DX: M31.6 Other giant cell arteritis (principal)
CPT/HCPCS: 36415; 85027; 85652; 86140

== ENCOUNTER → 2018-04-22 | Outpatient (CLI) | payer MEDICARE ==
[2018-04-22 08:24] LABS: Basophils % (A) 0 %; Eosinophils # (A) 0.1 k/uL (0-0.7); Eosinophils % (A) 1 %; HGB 14.3 gm/dL (13.0-17.5); Lymphocytes # (A) 2.6 k/uL (1.0-4.8); Lymphocytes % (A) 29 %; MCH 33.1 pg (25.0-35.0); MCHC 32.5 g/dL (31.0-37.0); Macrocytosis Slight; Mean Platelet Volume 6.1; Monocytes # (A) 0.6 k/uL (0-1.0); Monocytes % (A) 7 %; Neutrophils # (A) 5.5 k/uL (1.3-7.7); Neutrophils % (A) 62 %; Platelet Count 259 k/uL (150-450); RBC 4.31 m/uL (4.30-5.90); RDW 14.1 % (11.5-15.5)
[2018-04-22 15:54] LABS: T4, Free (Free Thyroxine) 1.2 ng/dL (0.80-1.80)
[2018-04-22 16:18] LABS: Albumin/Globulin Ratio 2.5 (1.60-3.17); Anion Gap 7.7 mmol/L (4.00-12.00); Calcium 9.3 mg/dL (8.7-10.3); Carbon Dioxide 30.3 mmol/L (21.6-31.8); Globulin 1.6 g/dL (1.6-3.3); LDL Cholesterol,Calculated 88.4 mg/dL (0.0-131.0); Potassium 4.1 mmol/L (3.5-5.5); Total Bilirubin 0.4 mg/dL (0.3-1.2); Total Protein 5.6 g/dL (6.2-8.2); VLDL Calculation 12.6 mg/dL (5.00-40.00)
== END | disposition home or self-care (01) ==
LOC: LABWHC1 07:51
PROVIDERS: ATTEND Internal Medicine Geriatric Medicine
DX: Z00.00 Encounter for general adult medical examination without abnormal findings (principal); M31.6 Other giant cell arteritis; E78.2 Mixed hyperlipidemia; R73.9 Hyperglycemia, unspecified
CPT/HCPCS: 36415; 80053; 80061; 83036; 84439; 84443; 85025

== ENCOUNTER → 2018-04-30 | Outpatient (CLI) | payer MEDICARE ==
--- NOTE | 2018-04-30 09:08 | CT ---
EXAMINATION TYPE: CT angio chest DATE OF EXAM: 04/30/2018 COMPARISON: NONE HISTORY: Localized chest swelling, mass and lump neck, loss of vision left eye CT DLP: 379.0 mGycm. Automated Exposure Control for Dose Reduction was Utilized. CONTRAST: CTA scan of the thorax is performed with IV Contrast, patient injected with 65 mL of Isovue 370, pulm onary embolism protocol. MIP Images are created on CT scanner and reviewed. FINDINGS: LUNGS: The lungs are grossly clear, there is no concerning parenchymal mass or nodule identified. 3 m m pulmonary nodule of the posterior right lung apex is present on series 7 image 17. This is continuo us with scarring and could relate to apical fibrotic change. Minimal dependent subsegmental atelectas is is seen within both lungs. Pleural parenchymal scarring is present within the lingula. There is no pleural effusion or pneumothorax seen. The tracheobronchial tree is patent. MEDIASTINUM: There is satisfactory enhancement of the ascending aorta. No evidence of thoracic aortic aneurysm or dissection is seen. Ascending thoracic aorta measures 2.8 cm. Moderate coronary artery c alcifications are present. Heart is mildly enlarged. No mediastinal adenopathy. Small hiatal hernia i s present. No pericardial effusion. There is a conventional three-vessel branch pattern of the aortic arch. Descending thoracic aorta is of normal caliber. OTHER: Upper abdomen demonstrates hepatic steatosis, which limits evaluation for hepatic masses, chol ecystectomy, and a left upper pole renal cyst IMPRESSION: 1. No evidence of thoracic aortic aneurysm or dissection. 2. Cardiomegaly and moderate coronary artery calcifications, a marker of coronary artery disease. 3. 3 mm right apical pulmonary nodule for which follow-up CT chest in 12 months is recommended to ens ure stability. 4. Incidentally noted hepatic steatosis and left upper pole simple appearing renal cysts.
--- NOTE | 2018-04-30 10:51 | CT ---
EXAMINATION TYPE: CT angio neck DATE OF EXAM: 04/30/2018 HISTORY: Localized swelling, mass and lump neck, loss of vision left eye since December COMPARISON: MR a/MRV of the head dated 12/27/2017 CT DLP: 232.30 mGycm. Automated Exposure Control for Dose Reduction was Utilized. TECHNIQUE: CTA scan of the neck is performed with IV Contrast, patient injected with 65 mL of Isovue 370, axial images are obtained, coronal and sagittal reformatted images are reviewed. Three-D recons tructed images are created on an independent workstation and reviewed. FINDINGS: Carotid/Vascular Structures: There is conventional three-vessel branch pattern of the aortic arch. Co mmon and arteries, carotid bulbs, and cervical portions of the internal carotid arteries are patent w ithout hemodynamically significant stenosis as are the visualized portions of the major intracranial vasculature. Posterior communicating arteries are either diminutive or not present. Left vertebral ar christina is dominant. Vertebral arteries appear patent. Ophthalmic arteries are not definitively visualized due to their diminutive caliber. Globes and extra ocular muscles are symmetric and unremarkable. Other: Thyroid gland is somewhat heterogenous with subcentimeter nodule on the right. Zqtr-bz-[id number] e multilevel degenerative change of the cervical spine is seen. IMPRESSION: No hemodynamically significant stenosis, vascular occlusion, aneurysmal outpouching, or dissection of the major arterial vasculature of the neck.
--- NOTE | 2018-04-30 10:54 | CT ---
EXAMINATION TYPE: CT soft tissue neck wo con DATE OF EXAM: 04/30/2018 HISTORY: Localized swelling, mass and lump COMPARISON: CT angiotech of the same date. CT DLP: 345.9 mGycm. Automated Exposure Control for Dose Reduction was Utilized. TECHNIQUE: CT scan of the neck is performed without contrast, axial images are obtained, coronal and sagittal reformatted images are reviewed. FINDINGS: Airway: Valleculae and piriform sinuses are unremarkable. True and false vocal cords are also unremar kable. Airway is maintained. Parotid/submandibular glands: No gross abnormality seen. Carotid/Vascular Structures: There is a conventional three-vessel branch pattern of the aortic arch. No intramural hematoma is seen on the unenhanced images or a very mild calcific atherosclerosis is no thais of the bilateral carotid bulbs with out hemodynamically significant stenosis seen on the CT angio tech of the same date. Osseous Structures: Mild to moderate multilevel degenerative disc disease is seen of the cervical spi ne with small posterior disc ossify complex present at C6-C7 appearing to create mild bilateral neura l foraminal narrowing and mild spinal canal stenosis. Evaluation of the spinal canal is overall limit ed on CT. There is mild degenerative narrowing of the atlantodental interval. Cervical spine vertebra l bodies maintain normal vertebral body height and alignment. There is no prevertebral soft tissue sw elling noted. Other: Globes and extraocular muscles are symmetric. Lenses appear surgically absent. IMPRESSION: 1. No CT mass to correspond to the patient's described mass/lump/local swelling. Focal ultrasound cou ld be performed. 2. [id number]-rk-epadmttr multilevel degenerative disc disease of the cervical spine with mild spinal canal stenosis at C6-C7. 3. Minimal nonhemodynamically significant atherosclerosis of the carotid bulbs.
== END ==
LOC: RADCTMAIN 07:17
PROVIDERS: ATTEND Internal Medicine Rheumatology
DX: I51.7 Cardiomegaly (principal); I25.10 Atherosclerotic heart disease of native coronary artery without angina pectoris; R91.1 Solitary pulmonary nodule; M31.6 Other giant cell arteritis
CPT/HCPCS: 82565; 84520; 70490; 70498; 71275; Q9967

== ENCOUNTER → 2018-06-12 | Outpatient (CLI) | payer MEDICARE | END | disposition home or self-care (01) | LOC: LABWHC1 08:57 | PROVIDERS: ATTEND Ophthalmology | DX: M31.6 Other giant cell arteritis (principal) | CPT/HCPCS: 36415; 85652; 86140 ==

== ENCOUNTER → 2018-08-28 | Outpatient (CLI) | payer MEDICARE ==
[2018-08-28 07:40] LABS: Basophils % (A) 0 %; Eosinophils # (A) 0.1 k/uL (0-0.7); Eosinophils % (A) 1 %; HCT 43.5 % (39.0-53.0); HGB 14.1 gm/dL (13.0-17.5); Lymphocytes # (A) 2.2 k/uL (1.0-4.8); Lymphocytes % (A) 27 %; MCH 32.3 pg (25.0-35.0); MCHC 32.4 g/dL (31.0-37.0); MCV 99.6 fL (80.0-100.0); Mean Platelet Volume 6.4; Monocytes # (A) 0.5 k/uL (0-1.0); Monocytes % (A) 7 %; Neutrophils # (A) 5.3 k/uL (1.3-7.7); Neutrophils % (A) 64 %; Platelet Count 260 k/uL (150-450); RBC 4.36 m/uL (4.30-5.90); RDW 13.3 % (11.5-15.5); WBC 8.3 k/uL (3.8-10.6)
[2018-08-28 08:40] LABS: Erythrocyte Sedimentation Rate 8 mm/hr (0-15)
[2018-08-28 11:30] LABS: ALT 18 U/L (10-49); AST 17 U/L (14-35); African American GFR (CKD) 95.1 (60.0-200.0); Albumin/Globulin Ratio 1.95 (1.60-3.17); Alkaline Phosphatase 57 U/L (41-126); BUN/Creat Ratio 13.33 Ratio (12.00-20.00); C Reactive Protein <0.4 mg/dL (0.0-0.8); Calcium 9.6 mg/dL (8.7-10.3); Carbon Dioxide 29.2 mmol/L (21.6-31.8); Chloride 107 mmol/L (96-109); Cholesterol 209 mg/dL (0-200); Glucose 89 mg/dL (70-110); Potassium 3.9 mmol/L (3.5-5.5); Sodium 142 mmol/L (135-145); Total Bilirubin 0.5 mg/dL (0.3-1.2); Total Protein 5.9 g/dL (6.2-8.2)
[2018-08-28 17:07] LABS: Hemoglobin A1C 5.8 % (4.0-6.0)
== END | disposition home or self-care (01) ==
LOC: LABWHC1 06:54
PROVIDERS: ATTEND Ophthalmology
DX: E78.2 Mixed hyperlipidemia (principal); E07.9 Disorder of thyroid, unspecified; M31.6 Other giant cell arteritis; R73.9 Hyperglycemia, unspecified; M13.88 Other specified arthritis, other site
CPT/HCPCS: 36415; 80053; 80061; 83036; 84439; 84443; 85025; 85652; 86140

== ENCOUNTER → 2018-10-12 | Outpatient (CLI) | payer MEDICARE ==
--- NOTE | 2018-10-12 11:27 | CT ---
EXAMINATION TYPE: CT abdomen pelvis w con DATE OF EXAM: 10/12/2018 COMPARISON: NONE HISTORY: 78-year-old male Prostate CA staging TECHNIQUE: Contiguous axial scanning of the abdomen and pelvis following administration of 100 ml Iso andrea 300 IV contrast. 4 minute delayed images through the kidneys and bladder and coronal/sagittal re constructions performed. CT DLP: 782.8 mGycm Automated exposure control for dose reduction was used. FINDINGS: Heart normal size without pericardial effusion. Lung bases clear without pleural effusion. Small hiatal hernia. Hypervascular focus in the caudate lobe adjacent to the intrahepatic IVC measuring 1.7 cm. Flash fill ing hemangioma suspected given that this area remains hypervascular on the delayed images. No other f ocal liver lesion seen. No biliary duct dilatation. Portal venous system is patent. No dilated small bowel, free fluid, or free air. No mesenteric or retroperitoneal lymphadenopathy. No secondary signs of acute appendicitis. Scattered cjfw-sg-brewdwja stool. No pericolonic inflammatory change.. A cortical cyst in the lateral left kidney measuring 2.0 cm. Subcentimeter hypodensity measuring 7 mm posterior lower pole left kidney too small for accurate CT characterization, also likely a cyst. Sym metric uptake and excretion of contrast from both kidneys. The bilateral mid ureters are patulous but show no internal filling defects. No mesenteric or retroperitoneal lymphadenopathy seen. Heterogeneous enhancement of the prostate gland which measures 4.1 cm wide. Central calcifications ar e noted. There is a small right posterior bladder wall diverticulum measuring 1.6 cm. No abnormal soft tissue extending to either ureteral orifice or any obvious soft tissue abnormality extending to the seminal vesicles. Moderate sized fatty direct left inguinal hernia. No pelvic lymphadenopathy. Bones: Mild degenerative changes at the hips. Degenerative disc disease L5-S1. No suspicious scleroti c lesion within the abdomen or pelvis is visualized. IMPRESSION: 1. Prostate gland only mildly enlarged at 4.1 cm wide. Heterogeneous enhancement may correspond to th e patient's known prostate cancer. 2. No suspicious pelvic or retroperitoneal lymphadenopathy or suspicious sclerotic osseous lesion in the abdomen or pelvis to suggest metastatic disease. 3. Small posterior bladder wall diverticulum on the right measuring 1.6 cm. 4. Small hiatal hernia and a moderate-sized fat-containing direct left inguinal hernia.
--- NOTE | 2018-10-12 13:07 | NM ---
EXAMINATION TYPE: NM bone scan whole body DATE OF EXAM: 10/12/2018 COMPARISON: CT scan 10/12/2018, 04/30/2018 HISTORY: Prostate cancer Delayed whole-body scanning was performed following the injection of 23.5 mCi Tc 99m MDP. Images acq uired 3 hours post injection. FINDINGS: Abnormal uptake involving the shoulders is suggestive of post arthritic changes. Abnormal uptake invo lving the first MTP of the left foot likely post arthritic. Moderate uptake seen throughout the thoracic spine is likely degenerative. Faint uptake L5-S1 likely degenerative and corresponds to the CT findings. IMPRESSION: 1. No diagnostic evidence of metastases. 2. Nonspecific uptake throughout the thoracic and lumbar spine likely degenerative.
== END | disposition home or self-care (01) ==
LOC: RADCTMAIN 07:56
PROVIDERS: ATTEND Urology
DX: N32.3 Diverticulum of bladder (principal); K44.9 Diaphragmatic hernia without obstruction or gangrene; K40.90 Unilateral inguinal hernia, without obstruction or gangrene, not specified as recurrent; C61 Malignant neoplasm of prostate
CPT/HCPCS: 82565; 84520; 74177; 36415; 78306; A9503; Q9967

== ENCOUNTER → 2018-10-13 | Outpatient (CLI) | payer MEDICARE ==
[2018-10-13 08:01] LABS: Mean Platelet Volume 6.5; Platelet Count 264 k/uL (150-450)
[2018-10-13 11:19] LABS: Erythrocyte Sedimentation Rate 4 mm/hr (0-15)
== END | disposition home or self-care (01) ==
LOC: LABWHC1 06:49
PROVIDERS: ATTEND Ophthalmology
DX: M31.6 Other giant cell arteritis (principal)
CPT/HCPCS: 36415; 85049; 85652; 86140

== ENCOUNTER → 2018-12-01 | Outpatient (CLI) | payer MEDICARE | END | disposition home or self-care (01) | LOC: LABWHC1 07:32 | PROVIDERS: ATTEND Ophthalmology | DX: M31.6 Other giant cell arteritis (principal) | CPT/HCPCS: 36415; 85652; 86140 ==

== ENCOUNTER → 2019-05-06 | Outpatient (CLI) | payer MEDICARE ==
[2019-05-06 09:04] LABS: Platelet Count 266 k/uL (150-450)
[2019-05-06 11:28] LABS: Erythrocyte Sedimentation Rate 25 mm/hr (0-15)
== END | disposition home or self-care (01) ==
LOC: LABWHC1 08:18
PROVIDERS: ATTEND Ophthalmology
DX: M31.6 Other giant cell arteritis (principal)
CPT/HCPCS: 36415; 85049; 85652; 86140

== ENCOUNTER → 2019-07-29 | Outpatient (CLI) | payer MEDICARE | END | disposition home or self-care (01) | LOC: LABWHC1 08:21 | PROVIDERS: ATTEND Ophthalmology | DX: M31.6 Other giant cell arteritis (principal) | CPT/HCPCS: 36415; 85652; 86140 ==

== ENCOUNTER → 2019-09-01 | Outpatient (CLI) | payer MEDICARE | END | disposition home or self-care (01) | LOC: LABWHC1 10:18 | PROVIDERS: ATTEND Ophthalmology | DX: M31.6 Other giant cell arteritis (principal) | CPT/HCPCS: 36415; 85652; 86140 ==

== ENCOUNTER → 2020-01-25 | Outpatient (CLI) | payer MEDICARE ==
[2020-01-25 10:58] LABS: Mean Platelet Volume 6.8; Platelet Count 250 k/uL (150-450)
[2020-01-26 15:17] LABS: Erythrocyte Sedimentation Rate 17 mm/Hr (0-20)
== END | disposition home or self-care (01) ==
LOC: LABWHC1 09:29
PROVIDERS: ATTEND Ophthalmology
DX: M31.6 Other giant cell arteritis (principal)
CPT/HCPCS: 36415; 85049; 85652; 86140

== ENCOUNTER 2020-04-08 16:01 | Emergency (ER) | payer MEDICARE ==
[2020-04-08 16:05] VITALS: TEMP 98.3
[2020-04-08] MEDS ORDERED: DIPH,PERTUS(ACELL)TETVAC-LF 0.5 ML VIAL IM ONE (16:19)
[2020-04-08] MEDS ORDERED: BACITRACIN OINT 1 EACH PACKET TOPICAL ONE (16:19)
[2020-04-08] MEDS ORDERED: LIDOCAINE 1% INJ 10MG/ML (20 ML MDV) SQ ONE (16:19)
--- NOTE | 2020-04-08 16:27 | ED ---
Wound/Laceration HPI - General Chief Complaint: Wound/Laceration Stated Complaint: lac to fingers Time Seen by Provider: 04/08/20 16:08 Source: patient Mode of arrival: ambulatory Limitations: no limitations - History of Present Illness Initial Comments: Patient is a 80-year-old male presenting to the emergency department with complaints of the lacerations on his left hand. Patient states he was using a table saw to cut a large piece of plastic when the plastic skip out of the machine and he put his hand out to block it from hitting him, cutting his second, third, fourth fingers on the left hand. Patient denies being on blood thinners. He states his tetanus vaccine is not up-to-date. Bleeding is controlled at this time with bandages. He has no further complaints at this time. - Related Data Home Medications Medication Instructions Recorded Confirmed Atorvastatin Calcium 10 mg PO HS 02/19/16 12/26/17 Brimonidine Tartrate [Alphagan P 1 drops LEFT EYE TID 12/26/17 12/26/17 0.2% Ophth Soln] Omeprazole Magnesium [PriLOSEC OTC] 20 mg PO HS 12/26/17 12/26/17 Previous Rx's Medication Instructions Recorded predniSONE 10 mg PO DAILY #30 tab 12/29/17 Cephalexin [Keflex] 500 mg PO BID 5 Days #10 cap 04/08/20 Allergies Allergy/AdvReac Type Severity Reaction Status Date / Time No Known Allergies Allergy Verified 04/08/20 16:05 Review of Systems ROS Statement: Those systems with pertinent positive or pertinent negative responses have been documented in the HPI. ROS Other: All systems not noted in ROS Statement are negative. Past Medical History Past Medical History: GERD/Reflux, Hyperlipidemia Additional Past Medical History / Comment(s): skin cancer History of Any Multi-Drug Resistant Organisms: None Reported Past Surgical History: Cholecystectomy, Tonsillectomy Additional Past Surgical History / Comment(s): Colonoscopy, cataract surgery (yeison). Past Anesthesia/Blood Transfusion Reactions: No Reported Reaction Past Psychological History: No Psychological Hx Reported Smoking Status: Never smoker Past Alcohol Use History: None Reported Past Drug Use History: None Reported - Past Family History Father Family Medical History: Liver Disease (Father at age of 85 from hepatitis C.) Brother(s) Family Medical History: Coronary Artery Disease (CAD) (Patient has 2 brothers one of them with CABG.) Sister(s) Family Medical History: No Reported History (Patient has 2 sisters no major medical problems.) Daughter(s) Family Medical History: No Reported History (Patient has one daughter no major medical problems) Son(s) Family Medical History: No Reported History (Patient has one son no major medical problems) Mother Family Medical History: Cancer (Mother at age of 85 from lymphoma.) Additional Family Medical History / Comment(s): LYMPHOMA General Exam - General Exam Comments Initial Comments: GENERAL: Patient is well-developed and well-nourished. Patient is nontoxic and in no acute distress. HEAD: Atraumatic, normocephalic. EYES: Pupils equal round and reactive to light, extraocular movements intact, sclera anicteric, conjunctiva are normal. Eyelids were unremarkable. ENT: TMs normal, nares patent, oropharynx clear without exudates. Moist mucous membranes. NECK: Normal range of motion, supple without lymphadenopathy or JVD. LUNGS: Unlabored respirations. Breath sounds clear to auscultation bilaterally and equal. No wheezes rales or rhonchi. HEART: Regular rate and rhythm without murmurs, rubs or gallops. ABDOMEN: Soft, nontender, normoactive bowel sounds. No guarding, no rebound. No masses appreciated. : Deferred MUSCULOSKELETAL: He has full flexion and extension of all fingers on the left hand. He is neurovascular intact. Normal extremities with adequate strength and normal range of motion, no pitting or edema. No clubbing or cyanosis. NEUROLOGICAL: Patient is alert and oriented x 3. Motor and sensory are also intact. Cranial nerves II through XII grossly intact. Symmetrical smile. Normal speech, normal gait. PSYCH: Normal mood, normal affect. SKIN: Warm, Dry, normal turgor, no rashes. Patient has 3 separate wounds. 1. 1 cm laceration to the dorsal aspect of the left index finger, proximal to the IP joint. 2. 1.5 cm laceration of the dorsal aspect of the left middle finger, over the IP joint. 3. 2 cm laceration to the left ring finger that's more on the lateral aspect of the finger, distal end, no nail involvement. Limitations: no limitations Course Vital Signs 04/08/20 04/08/20 16:03 17:30 Temperature 98.3 F Pulse Rate 80 82 Respiratory 20 18 Rate Blood Pressure 132/80 128/82 O2 Sat by Pulse 99 99 Oximetry Procedures - Laceration Laceration #1 Consent Obtained: verbal consent Indication: laceration Site: hand (Left index finger, dorsal aspect) Size (cm): 1 Description: linear, flap, avulsion, irregular Depth: simple, single layer Anesthetic Used: lidocaine 1% Anesthesia Technique: local infiltration Amount (mls): 2 Pre-repair: irrigated extensively Type of Sutures: nylon Size of Sutures: 5-0 Number of Sutures: 2 Technique: simple, interrupted Patient Tolerated Procedure: well Laceration #2 Consent Obtained: verbal consent Indication: laceration Site: hand (Middle finger left hand, dorsal aspect) Size (cm): 0 (1.5cm) Description: linear, irregular Depth: simple, single layer Anesthetic Used: lidocaine 1% Anesthesia Technique: local infiltration Amount (mls): 2 Pre-repair: irrigated extensively Type of Sutures: nylon Size of Sutures: 5-0 Number of Sutures: 5 Technique: simple, interrupted Patient Tolerated Procedure: well Laceration #3 Consent Obtained: verbal consent Indication: laceration Site: hand (Left ring finger, lateral aspect, no nail involvement) Size (cm): 2 Description: flap, avulsion, irregular Depth: simple, single layer Anesthetic Used: lidocaine 1% Anesthesia Technique: local infiltration Amount (mls): 2 Pre-repair: irrigated extensively Type of Sutures: nylon Size of Sutures: 5-0 Number of Sutures: 3 Technique: simple, interrupted Patient Tolerated Procedure: well Medical Decision Making - Medical Decision Making Patient is 80-year-old male here with lacerations to his second third and fourth digit on his left hand from a piece of large plastic that he was cutting with a table saw. We did update his tetanus vaccine today. Patient had a 1 cm laceration on his left index finger, this was cleaned, closed with 2, 5-0 sutures. Second laceration was on his left middle finger, 1.5 cm in length, closed with 5, 5-0 sutures. The third laceration was on his left ring finger, 2 cm in length, this did have a lot of avulsion to the wound, I was able to place 3 sutures. Patient tolerated procedure very well. He will have a total of 10 sutures removed in 7-10 days. He is to keep wound clean and dry. He can apply topical antibiotic once a day. I will give him a short course of Keflex. Patient is stable for discharge. He is in agreement with this plan of care. He can follow-up with his regular doctor as needed. Disposition Clinical Impression: Laceration of multiple sites of left hand and fingers Disposition: HOME SELF-CARE Condition: Stable Instructions (If sedation given, give patient instructions): Care For Your Stitches (ED) Additional Instructions: Please return to the Emergency Department if symptoms worsen or any other concerns. Keep wounds clean and dry. May apply topical antibiotic once a day. Take oral antibiotics as prescribed. Stitches need to be removed in 7-10 days as discussed. Prescriptions: Cephalexin [Keflex] 500 mg PO BID 5 Days #10 cap Is patient prescribed a controlled substance at d/c from ED?: No Referrals: Preet Allen MD [Primary Care Provider] - 1-2 days
[2020-04-08] MEDS ORDERED: IBUPROFEN 600 MG TAB PO STA (17:24)
[2020-04-08 17:31] VITALS: BP 128/82; PULSE 82; RESP 18
== END 2020-04-08 17:31 | disposition home or self-care (01) ==
LOC: EC 16:01
DX: S61.211A Laceration without foreign body of left index finger without damage to nail, initial encounter (principal); S61.213A Laceration without foreign body of left middle finger without damage to nail, initial encounter; S61.214A Laceration without foreign body of right ring finger without damage to nail, initial encounter; E78.5 Hyperlipidemia, unspecified; K21.9 Gastro-esophageal reflux disease without esophagitis; Z79.899 Other long term (current) drug therapy; Z85.828 Personal history of other malignant neoplasm of skin; Z23 Encounter for immunization; W26.8XXA Contact with other sharp object(s), not elsewhere classified, initial encounter; Y93.89 Activity, other specified; Y92.009 Unspecified place in unspecified non-institutional (private) residence as the place of occurrence of the external cause
CPT/HCPCS: 90715; 99282; 12002; 90471; J2001

== ENCOUNTER → 2020-07-11 | Outpatient (CLI) | payer MEDICARE | END | disposition home or self-care (01) | LOC: LABWHC1 09:21 | PROVIDERS: ATTEND Ophthalmology | DX: M31.6 Other giant cell arteritis (principal) | CPT/HCPCS: 36415; 85652; 86140 ==

== ENCOUNTER → 2020-11-16 | Outpatient (CLI) | payer MEDICARE | END | disposition home or self-care (01) | LOC: LABWHC1 08:27 | PROVIDERS: ATTEND Ophthalmology | DX: I77.6 Arteritis, unspecified (principal) | CPT/HCPCS: 36415; 85652; 86140 ==

== ENCOUNTER → 2021-05-17 | Outpatient (CLI) | payer MEDICARE ==
[2021-05-17 15:05] LABS: Basophils # (A) 0.04 X 10*3/uL (0.00-0.10); Basophils % (A) 0.5 %; Eosinophils # (A) 0.14 X 10*3/uL (0.04-0.35); Eosinophils % (A) 1.8 %; HCT 42.5 % (39.6-50.0); HGB 13.5 g/dL (13.0-17.0); Immature Grans, Automated 0.5 %; Lymphocytes % (A) 20.2 %; MCH 32.1 pg (27.0-32.0); MCHC 31.8 g/dL (32.0-37.0); Mean Platelet Volume 9.7 fL (9.5-12.2); Monocytes # (A) 0.75 X 10*3/uL (0.20-1.00); Monocytes % (A) 9.5 %; NRBC Per 100 WBC 0 /100 WBCS (0.0-0.0); Neutrophils # (A) 5.34 X 10*3/uL (1.80-7.70); Neutrophils % (A) 67.5 %; Platelet Count 215 X 10*3/uL (140-440); RBC 4.21 X 10*6/uL (4.40-5.60); RDW 13.2 % (11.5-14.5); WBC 7.91 X 10*3/uL (4.50-10.00)
[2021-05-17 15:54] LABS: ALT 15 U/L (10-49); AST 14 U/L (14-35); African American GFR (CKD) 97.8 (60.0-200.0); Albumin 4.1 g/dL (3.8-4.9); Albumin/Globulin Ratio 1.78 (1.60-3.17); Alkaline Phosphatase 104 U/L (41-126); BUN/Creat Ratio 16.75 Ratio (12.00-20.00); Blood Urea Nitrogen 13.4 mg/dL (9.0-27.0); Calcium 9.3 mg/dL (8.7-10.3); Chloride 105 mmol/L (96-109); Chol/HDL Ratio 2.92 Ratio; Globulin 2.3 g/dL (1.6-3.3); Glucose 94 mg/dL (70-110); LDL Cholesterol,Calculated 110.9 mg/dL (0.0-131.0); Non-African American GFR(CKD) 84.4 (60.0-200.0); Potassium 4.5 mmol/L (3.5-5.5); Sodium 140 mmol/L (135-145); Total Protein 6.4 g/dL (6.2-8.2); VLDL Calculation 17.34 mg/dL (5.00-40.00)
[2021-05-17 17:08] LABS: Erythrocyte Sedimentation Rate 11 mm/Hr (0-20)
== END | disposition home or self-care (01) ==
LOC: LABWHC1 08:00
PROVIDERS: ATTEND Ophthalmology
DX: G70.00 Myasthenia gravis without (acute) exacerbation (principal); E78.2 Mixed hyperlipidemia; R73.9 Hyperglycemia, unspecified; E07.9 Disorder of thyroid, unspecified; M31.6 Other giant cell arteritis
CPT/HCPCS: 36415; 80053; 80061; 83036; 84439; 84443; 85025; 85652; 86140

== ENCOUNTER → 2021-11-22 | Outpatient (CLI) | payer MEDICARE | END | disposition home or self-care (01) | LOC: LABWHC1 08:28 | PROVIDERS: ATTEND Ophthalmology | DX: H93.2 Other abnormal auditory perceptions (principal) | CPT/HCPCS: 36415; 85652; 86140 ==

== ENCOUNTER → 2022-01-23 | Outpatient (CLI) | payer MEDICARE ==
[2022-01-24 01:50] LABS: Prostate Specific Antigen 0.2 ng/mL (0.00-6.50)
== END | disposition home or self-care (01) ==
LOC: LABWHC1 13:11
PROVIDERS: ATTEND Radiology Radiation Oncology
DX: Z08 Encounter for follow-up examination after completed treatment for malignant neoplasm (principal); C61 Malignant neoplasm of prostate; R35.1 Nocturia; Z85.46 Personal history of malignant neoplasm of prostate; Z79.818 Long term (current) use of other agents affecting estrogen receptors and estrogen levels; Z92.3 Personal history of irradiation
CPT/HCPCS: 36415; 84153; 84403

== ENCOUNTER → 2022-11-28 | Outpatient (CLI) | payer MEDICARE | END | disposition home or self-care (01) | LOC: LABWHC1 13:07 | PROVIDERS: ATTEND Radiology Radiation Oncology | DX: Z08 Encounter for follow-up examination after completed treatment for malignant neoplasm (principal); C61 Malignant neoplasm of prostate; R35.1 Nocturia; Z79.818 Long term (current) use of other agents affecting estrogen receptors and estrogen levels; Z92.3 Personal history of irradiation | CPT/HCPCS: 36415; 84153 ==

== ENCOUNTER → 2023-01-09 | Outpatient (CLI) | payer MEDICARE ==
--- NOTE | 2023-01-10 13:51 | PE ---
EXAMINATION TYPE: PET CT fusion skull to thigh DATE OF EXAM: 01/09/2023 CLINICAL INDICATION:Male, 82 years old with history of Z08 follow up for malignant neoplasm Z85.46 hx of; TECHNIQUE: Following the intravenous administration of 5.07 mCi of Ga-68 Illuccix (PSMA), whole bod y images are performed from the skull base to the midthigh. Images are reviewed on the computer in t he coronal, axial, and sagittal planes. Reconstructed rotating images are created on independent wor kstation and reviewed on the computer. A non-contrast CT is performed in conjunction with the PET s can. CT DLP: 552 mGycm, Automated exposure control for dose reduction was used. COMPARISON: CT 10/12/2018, nuclear medicine bone scan 10/12/2018, PET/CT None, FINDINGS: Mediastinal SUV mean is 1.5. Hepatic parenchyma SUV mean is 7.2. SKULL BASE AND NECK: No suspicious radiotracer activity. CHEST, MEDIASTINUM, AND HILAR REGION: * Focal radiotracer uptake anterior to left rib 1 max SUV 6.8, thought to be a lymph node measuring 5 mm * AP window nonenlarged lymph nodes max SUV 6.8. ABDOMEN AND PELVIS: Retroperitoneal lymph nodes with radiotracer activity. Examples include: * 5 mm Max SUV 21 series 3 image 159 * 6 mm Max SUV 11.8 image 163 * 5 mm Max SUV 15.0 image 161, * right common iliac chain measuring 9 mm Max SUV 26 image 178 * Heterogenous uptake within the prostate gland itself max SUV 4.6. MUSCULOSKELETAL STRUCTURES: No suspicious radiotracer activity. OTHER CT: Coronary artery calcifications as well as aortic valve leaflet calcifications. Moderate hia farhad hernia. The gallbladder surgically absent. Bilateral fat-containing inguinal hernias left greater than right. Coarse calcifications within the prostate gland. Right posterior lateral bladder diverti culum. IMPRESSION: Multiple retroperitoneal lymph nodes with increased radio tracer uptake concerning for prostatic trevor ocarcinoma metastatic disease. Lymph nodes are also seen in the mediastinum and left anterior chest a nterior to the left rib 1 with increased radiotracer uptake suspicious for metastatic disease as well .
== END | disposition home or self-care (01) ==
LOC: RADPETMAIN 15:26
PROVIDERS: ATTEND Radiology Radiation Oncology
DX: Z08 Encounter for follow-up examination after completed treatment for malignant neoplasm (principal); Z85.46 Personal history of malignant neoplasm of prostate; R59.0 Localized enlarged lymph nodes; R35.1 Nocturia; Z79.818 Long term (current) use of other agents affecting estrogen receptors and estrogen levels; Z92.3 Personal history of irradiation
CPT/HCPCS: 78815; A9596